=== PATIENT | female | born 1960 | race Caucasian/White ===

== ENCOUNTER 2017-03-22 11:02 | Emergency (ER) | payer BC ==
[2017-03-22] MEDS ORDERED: Ketorolac Tromethamine 30 MG/ML VIAL ONE (12:21)
== END 2017-03-22 12:56 | disposition home or self-care (01) ==
LOC: ERS 11:02
DX: M54.16 Radiculopathy, lumbar region (principal); Z79.891 Long term (current) use of opiate analgesic; Z79.899 Other long term (current) drug therapy
CPT/HCPCS: 96372; J1885

== ENCOUNTER 2017-07-19 15:50 | Outpatient (CLI) | payer BC | END 2017-07-19 15:51 | disposition home or self-care (01) | LOC: BICRAD 15:50 | PROVIDERS: ATTEND Family Medicine | DX: R07.81 Pleurodynia (principal) ==

== ENCOUNTER 2022-09-12 12:40 | Outpatient (CLI) | payer BC | END 2022-09-12 12:41 | disposition home or self-care (01) | LOC: BICRAD 12:40 | PROVIDERS: ATTEND Family Medicine | DX: R05.9 Cough, unspecified (principal); M47.814 Spondylosis without myelopathy or radiculopathy, thoracic region; M48.54XA Collapsed vertebra, not elsewhere classified, thoracic region, initial encounter for fracture | CPT/HCPCS: 71046 ==

== ENCOUNTER 2023-08-23 23:23 | Inpatient (IN) | payer BC ==
[2023-08-24] MEDS ORDERED: traMADol HCl 50 MG TAB ONE (00:38)
[2023-08-24 02:53] LABS: #Monocytes 0.4 thou/uL (0.11-0.59); #Neutrophils 9.9 thou/uL (1.40-6.50); %Basophils 0.3 % (0.0-1.0); %Eosinophils 0.3 % (0.0-10.0); %Lymphocytes 9.1 % (21.0-51.0); %Monocytes 3.6 % (0.0-10.0); %Neutrophils 86.4 % (42.0-75.0); Hematocrit 37.5 % (36.0-47.0); Mean Corpuscular HGB CONC 34.7 g/dL (32.0-36.0); Mean Corpuscular Hemoglobin 32.3 pg (27.0-31.0); Mean Corpuscular Volume 93.3 fl (78.0-98.0); Mean Platelet Volume 9.5 fL (7.4-10.4); Platelet Count 198 10x3/uL (130-400); RBC Distribution Width 13.1 % (11.5-14.5); Red Blood Cell (RBC) Count 4.02 mill/uL (4.20-5.40); White Blood Cell (WBC) Count 11.5 10x3/uL (4.8-10.8)
[2023-08-24 03:09] LABS: PTT 23.5 sec (22.9-36.1); Prothrombin Time 13.4 sec (12.0-14.7)
[2023-08-24] MEDS ORDERED: Ondansetron ODT 4 MG TAB SL PRN (03:15)
[2023-08-24] MEDS ORDERED: Ondansetron PF 4 MG/2 ML Vial IVP PRN (03:15)
[2023-08-24] MEDS ORDERED: Acetaminophen 325 MG TAB PO PRN ×2 (03:15→07:04)
[2023-08-24 04:12] LABS: ALT (SGPT) 56 U/L (8-55); AST (SGOT) 40 U/L (5-34); Albumin 4.3 g/dL (3.4-4.8); Alkaline Phosphatase 74 U/L (40-110); Anion Gap 19 mmol/L (10-20); BUN (Urea Nitrogen) 14 mg/dL (9.8-20.1); Bilirubin, Total 0.4 mg/dL (0.2-1.2); Calc. Creatinine Clearance 0 mL/min (70-130); Calcium 9.5 mg/dL (7.8-10.44); Carbon Dioxide 18 mmol/L (23-31); Chloride 106 mmol/L (98-107); Estimated GFR 87; Glucose 118 mg/dL (80-115); Protein, Total 7.3 g/dL (5.8-8.1); Sodium 139 mmol/L (136-145)
[2023-08-24 04:33] VITALS: BMI 33.6
[2023-08-24] MEDS: Morphine 4 MG/ML VIAL SLOW IVP PRN ×2 (04:43→10:16)
[2023-08-24] MEDS ORDERED: Dextrose 50% Abboject 50 ML SYRINGE SLOW IVP PRN (07:04)
[2023-08-24] MEDS ORDERED: Glucagon 1 MG/ML KIT IM PRN (07:04)
[2023-08-24] MEDS ORDERED: Ondansetron ODT 4 MG TAB PO PRN (07:04)
[2023-08-24] MEDS ORDERED: Morphine 2 MG/ML VIAL SLOW IVP PRN (07:04)
[2023-08-24] MEDS ORDERED: Acetaminophen/Codeine 30-300mg Tablet PO PRN (07:04)
[2023-08-24] MEDS ORDERED: Dextrose 5% in Water 1,000 ML IV PRN (07:04)
[2023-08-24] MEDS: Cyclobenzaprine 10 MG TAB PO PRN (13:57)
[2023-08-24] MEDS: Ondansetron PF 4 MG/2 ML Vial IVP PRN (14:01)
[2023-08-24] MEDS: traMADol HCl 50 MG TAB PO PRN (19:06)
[2023-08-24] MEDS: BuPROPion XL 150 MG ER.TAB PO SCH (22:38)
[2023-08-25] MEDS: Ibuprofen 600 MG TAB PO PRN (04:48)
[2023-08-25 05:07] LABS: #Monocytes 0.6 thou/uL (0.11-0.59); #Neutrophils 5.8 thou/uL (1.40-6.50); %Basophils 0.1 % (0.0-1.0); %Eosinophils 0.1 % (0.0-10.0); %Lymphocytes 17.1 % (21.0-51.0); %Neutrophils 74.4 % (42.0-75.0); Hematocrit 36.4 % (36.0-47.0); Hemoglobin 12.2 g/dL (12.0-16.0); Mean Corpuscular HGB CONC 33.5 g/dL (32.0-36.0); Mean Corpuscular Hemoglobin 31.9 pg (27.0-31.0); Mean Corpuscular Volume 95.3 fl (78.0-98.0); Mean Platelet Volume 9.8 fL (7.4-10.4); Platelet Count 198 10x3/uL (130-400); Red Blood Cell (RBC) Count 3.82 mill/uL (4.20-5.40); White Blood Cell (WBC) Count 7.8 10x3/uL (4.8-10.8)
[2023-08-25 05:39] LABS: Anion Gap 14 mmol/L (10-20); BUN (Urea Nitrogen) 8 mg/dL (9.8-20.1); Calc. Creatinine Clearance 87 mL/min (70-130); Calcium 9.7 mg/dL (7.8-10.44); Carbon Dioxide 22 mmol/L (23-31); Chloride 97 mmol/L (98-107); Estimated GFR 97; Glucose 105 mg/dL (80-115); Potassium 4.1 mmol/L (3.5-5.1); Sodium 129 mmol/L (136-145)
[2023-08-25] MEDS ORDERED: BuPROPion XL 150 MG ER.TAB PO SCH (09:00)
[2023-08-25] MEDS: Escitalopram Oxalate 10 mg Tablet PO SCH (10:09)
[2023-08-25] MEDS: Diclofenac 25 MG DR.TAB PO SCH (10:11)
[2023-08-25] MEDS: Lorazepam 1 MG TAB PO SCH (10:11)
[2023-08-25] MEDS: BuPROPion XL 150 MG ER.TAB PO SCH (20:37)
[2023-08-26] MEDS ORDERED: Bisacodyl 10 MG SUPP PR PRN (11:57)
[2023-08-26] MEDS: Senokot 8.6 MG TAB PO SCH (21:40)
[2023-08-26] MEDS: Temazepam 15 MG CAP PO PRN (21:40)
[2023-08-26] MEDS: Docusate 100 MG CAP PO SCH (21:40)
[2023-08-27 04:26] LABS: #Eosinphils 0.2 thou/uL (0.0-0.7); #Monocytes 0.6 thou/uL (0.11-0.59); #Neutrophils 3.2 thou/uL (1.40-6.50); %Basophils 0.7 % (0.0-1.0); %Eosinophils 3.1 % (0.0-10.0); %Lymphocytes 30.4 % (21.0-51.0); %Monocytes 9.8 % (0.0-10.0); %Neutrophils 55.7 % (42.0-75.0); Hematocrit 32.2 % (36.0-47.0); Hemoglobin 10.9 g/dL (12.0-16.0); Mean Corpuscular HGB CONC 33.9 g/dL (32.0-36.0); Mean Corpuscular Hemoglobin 31.6 pg (27.0-31.0); Mean Corpuscular Volume 93.3 fl (78.0-98.0); Mean Platelet Volume 9.8 fL (7.4-10.4); Platelet Count 196 10x3/uL (130-400); RBC Distribution Width 13.2 % (11.5-14.5); Red Blood Cell (RBC) Count 3.45 mill/uL (4.20-5.40); White Blood Cell (WBC) Count 5.7 10x3/uL (4.8-10.8)
[2023-08-27 05:02] LABS: Anion Gap 13 mmol/L (10-20); BUN (Urea Nitrogen) 11 mg/dL (9.8-20.1); Calc. Creatinine Clearance 81 mL/min (70-130); Calcium 9.8 mg/dL (7.8-10.44); Carbon Dioxide 27 mmol/L (23-31); Chloride 99 mmol/L (98-107); Estimated GFR 89; Glucose 102 mg/dL (80-115); Potassium 3.7 mmol/L (3.5-5.1); Sodium 135 mmol/L (136-145)
[2023-08-27 13:00] VITALS: BP 90/61; TEMP 98.3
[2023-08-28] MEDS ORDERED: Enoxaparin 40 MG (0.4 mL) SYRINGE SC SCH (09:00)
== END 2023-08-27 19:58 | DRG 563 ==
LOC: ERS 23:23 → SURG A 08-24 03:10
PROVIDERS: ADMIT Specialist; ATTEND Specialist
DX: S82.142A Displaced bicondylar fracture of left tibia, initial encounter for closed fracture (principal); S82.141A Displaced bicondylar fracture of right tibia, initial encounter for closed fracture; Q78.0 Osteogenesis imperfecta; W19.XXXA Unspecified fall, initial encounter; M17.10 Unilateral primary osteoarthritis, unspecified knee; F41.9 Anxiety disorder, unspecified; G47.00 Insomnia, unspecified; Z79.891 Long term (current) use of opiate analgesic; Z79.899 Other long term (current) drug therapy
CPT/HCPCS: 36415; 71045; 80048; 80053; 85025; 85610; 85730; 86850; 86900; 86901; 93005; J2270; J2405

== ENCOUNTER 2024-03-06 13:03 | Outpatient (CLI) | payer BC | END 2024-03-06 13:04 | disposition home or self-care (01) | LOC: BICCT 13:03 | PROVIDERS: ATTEND Orthopaedic Surgery | DX: M17.12 Unilateral primary osteoarthritis, left knee (principal); M25.462 Effusion, left knee; I70.90 Unspecified atherosclerosis ==

== ENCOUNTER 2024-04-21 09:57 | Outpatient (CLI) | payer BC ==
[2024-04-21 11:38] LABS: #Basophils 0.03 10x3/uL (0.0-0.2); %Basophils 0.8 % (0.0-1.0); %Lymphocytes 32.3 % (21.0-51.0); %Monocytes 8.3 % (0.0-10.0); %Neutrophils 55.3 % (42.0-75.0); Hemoglobin 13.6 g/dL (12.0-16.0); Mean Corpuscular HGB CONC 33.2 g/dL (32.0-36.0); Mean Corpuscular Hemoglobin 30.8 pg (27.0-31.0); Mean Platelet Volume 10.1 fL (7.4-10.4); Platelet Count 244 10x3/uL (130-400); RBC Distribution Width 12.7 % (11.5-14.5); Red Blood Cell (RBC) Count 4.41 mill/uL (4.20-5.40)
[2024-04-21 11:51] LABS: Prothrombin Time 12.7 sec (12.0-14.7)
[2024-04-21 11:54] LABS: Anion Gap 12 mmol/L (10-20); BUN (Urea Nitrogen) 13 mg/dL (9.8-20.1); Calc. Creatinine Clearance 0 mL/min (70-130); Calcium 9.9 mg/dL (7.8-10.44); Carbon Dioxide 25 mmol/L (23-31); Chloride 104 mmol/L (98-107); Estimated GFR 86; Glucose 67 mg/dL (80-115); Sodium 137 mmol/L (136-145)
== END 2024-04-21 09:58 | disposition home or self-care (01) ==
LOC: LABBT 09:57
PROVIDERS: ATTEND Orthopaedic Surgery
DX: Z01.812 Encounter for preprocedural laboratory examination (principal); M17.12 Unilateral primary osteoarthritis, left knee
CPT/HCPCS: 80048; 85025; 85610; 87081; 93005; 93010

== ENCOUNTER 2024-04-23 09:54 | Outpatient (CLI) | payer BC | END 2024-04-23 09:55 | disposition home or self-care (01) | LOC: BICMAMMO 09:54 | PROVIDERS: ATTEND Family Medicine | DX: Z12.31 Encounter for screening mammogram for malignant neoplasm of breast (principal) | CPT/HCPCS: 77063; 77067 ==

== ENCOUNTER 2024-04-28 07:07 | Inpatient (IN) | payer BC ==
[2024-04-28] MEDS ORDERED: Tranexamic Acid 1,000 MG/10 ML VIAL ONE (08:05)
[2024-04-28] MEDS ORDERED: Vancomycin 1 GM/200 ML (FROZEN) BAG ONE (08:06)
[2024-04-28] MEDS ORDERED: Sodium Chloride 0.9% 100 ML ONE (08:06)
[2024-04-28] MEDS ORDERED: fentaNYL 50 mcg/mL 1 mL Vial ONE ×6 (08:16→13:26)
[2024-04-28] MEDS ORDERED: Midazolam HCl 2 mg/2 ml Vial ONE (08:16)
[2024-04-28] MEDS ORDERED: Bupivacaine PF 0.5% 30 ML VIAL ONE (08:16)
[2024-04-28] MEDS ORDERED: CEFAZOLIN 2 GM VIAL ONE (09:07)
[2024-04-28] MEDS ORDERED: Bupivacaine 0.25% HCL 30 ML VIAL ONE (09:07)
[2024-04-28] MEDS ORDERED: EPINEPHrine 1 MG/ML VIAL ONE (09:07)
[2024-04-28] MEDS ORDERED: Promethazine HCl 25 MG/ML VIAL IM PRN ×2 (09:15→12:12)
[2024-04-28] MEDS ORDERED: Ondansetron PF 4 MG/2 ML Vial IVP PRN (09:15)
[2024-04-28] MEDS ORDERED: Zolpidem Tartrate 5 MG TAB PO PRN (09:15)
[2024-04-28] MEDS ORDERED: Ropivacaine 0.2% 550 ML 550 ML NERVE BLCK SCH (09:15)
[2024-04-28] MEDS ORDERED: fentaNYL 50 mcg/mL 1 mL Vial SLOW IVP PRN (09:15)
[2024-04-28] MEDS ORDERED: PROPOFOL 20 ML ONE (09:29)
[2024-04-28] MEDS ORDERED: Lidocaine 1% PF 5 ML VIAL ONE (09:30)
[2024-04-28] MEDS ORDERED: Ondansetron PF 4 MG/2 ML Vial ONE (09:30)
[2024-04-28] MEDS ORDERED: fentaNYL PF 100 MCG/2 ML SYRINGE ONE (10:01)
[2024-04-28] MEDS ORDERED: ePHEDrine Sulfate 50 MG/10 ML VIAL ONE (10:17)
[2024-04-28] MEDS ORDERED: Ondansetron HCl/PF 4 MG/2 ML Vial IVP PRN (12:12)
[2024-04-28] MEDS ORDERED: Ketorolac Tromethamine 30 MG (1 mL) VIAL ONE (12:19)
[2024-04-28] MEDS ORDERED: Acetaminophen 325 MG TAB PO PRN (13:05)
[2024-04-28] MEDS ORDERED: diphenhydrAMINE 25 MG CAP PO PRN (13:05)
[2024-04-28] MEDS ORDERED: Temazepam 15 MG CAP PO PRN (13:05)
[2024-04-28] MEDS ORDERED: traMADol HCl 50 MG TAB ONE (13:42)
[2024-04-28] MEDS: Lorazepam 1 MG TAB PO SCH (15:15)
[2024-04-28] MEDS: Ketorolac Tromethamine 30 MG (1 mL) VIAL IVP SCH (15:16)
[2024-04-28] MEDS: HYDROcodone/Acetaminophen 10/325 mg Tablet PO PRN (15:16)
[2024-04-28 16:14] VITALS: BMI 35.2
[2024-04-28] MEDS: CEFAZOLIN 2 GM in Sodium Chloride 0.9% 100 ML IVPB SCH (18:18)
[2024-04-28] MEDS: FLU (Fluarix Triv) TS24-25(6MOS UP)/PF 45 MCG/0.5 ML Syringe IM ONE (21:33)
[2024-04-28] MEDS: Aspirin 81 mg Enteric Coated Tablet PO SCH (21:33)
[2024-04-28] MEDS: Sodium Chloride 0.9% 1,000 ML IV SCH (21:39)
[2024-04-29 05:21] LABS: Hematocrit 35.9 % (36.0-47.0); Hemoglobin 11.8 g/dL (12.0-16.0); Mean Corpuscular HGB CONC 32.9 g/dL (32.0-36.0); Mean Corpuscular Hemoglobin 31.6 pg (27.0-31.0); Mean Platelet Volume 9.6 fL (7.4-10.4); Platelet Count 192 10x3/uL (130-400); Red Blood Cell (RBC) Count 3.74 mill/uL (4.20-5.40)
[2024-04-29] MEDS: traMADol HCl 50 MG TAB PO PRN (09:01)
[2024-04-29] MEDS: Multivitamin W/ Minerals 1 TAB PO SCH (09:02)
[2024-04-29] MEDS: BuPROPion XL 150 MG ER.TAB PO SCH (09:02)
[2024-04-29] MEDS: Escitalopram Oxalate 10 mg Tablet PO SCH (09:03)
[2024-04-29] MEDS: Ferrous Gluconate 324 MG TAB PO SCH (09:03)
[2024-04-29] MEDS: Senokot S 8.6-50 MG TAB PO SCH (09:04)
[2024-04-30 06:06] LABS: Hematocrit 30.9 % (36.0-47.0); Hemoglobin 10.3 g/dL (12.0-16.0); Mean Corpuscular HGB CONC 33.3 g/dL (32.0-36.0); Mean Corpuscular Volume 93.1 fL (78.0-98.0); Mean Platelet Volume 9.8 fL (7.4-10.4); Platelet Count 156 10x3/uL (130-400); RBC Distribution Width 12.7 % (11.5-14.5); Red Blood Cell (RBC) Count 3.32 mill/uL (4.20-5.40)
[2024-04-30] MEDS: traMADol HCl 50 MG TAB PO PRN (15:34)
[2024-04-30] MEDS: HYDROcodone/Acetaminophen 10/325 mg Tablet PO PRN (17:42)
[2024-05-02 08:42] VITALS: BP 124/75; TEMP 99.4
== END 2024-05-02 10:45 | disposition home or self-care (01) | DRG 470 ==
LOC: SDC 07:07 → SURG B 14:37 → SDC 17:17 → SURG B 17:17 → OBSVTOIN 04-29 12:00
PROVIDERS: ADMIT Orthopaedic Surgery; ATTEND Orthopaedic Surgery
PROC: 0SRD0J9 Replacement of Left Knee Joint with Synthetic Substitute, Cemented, Open Approach (ICD-10-PCS; principal; 2024-04-28)
DX: M17.32 Unilateral post-traumatic osteoarthritis, left knee (principal); Q78.0 Osteogenesis imperfecta; R53.81 Other malaise
CPT/HCPCS: 36415; 85027; 96365; 96375; 96376; A4306; C1713; C1776; C1889; G0378; J0171; J0665; J1885; J2250; J2405; J2704; J2795; J3010; J3370-JW

== ENCOUNTER 2025-02-10 13:45 | Outpatient (CLI) | payer MEDICARE | END 2025-02-10 13:46 | disposition home or self-care (01) | LOC: SCSRAD 13:45 | PROVIDERS: ATTEND Family Medicine | DX: J18.1 Lobar pneumonia, unspecified organism (principal) | CPT/HCPCS: 71046 ==

== ENCOUNTER 2025-05-27 13:27 | Outpatient (CLI) | payer MEDICARE | END 2025-05-27 13:28 | disposition home or self-care (01) | LOC: BICMAMMO 13:27 | PROVIDERS: ATTEND Family Medicine | DX: Z12.31 Encounter for screening mammogram for malignant neoplasm of breast (principal) | CPT/HCPCS: 77063; 77067 ==